=== PATIENT | female | born 1945 | race Caucasian/White ===

== ENCOUNTER → 2020-01-08 13:04 | Outpatient (CLI) | payer MEDICARE | END | disposition home or self-care (01) | LOC: D.US 13:04 | PROVIDERS: ATTEND Nurse Practitioner Family | DX: M79.89 Other specified soft tissue disorders (principal); I10 Essential (primary) hypertension; E78.5 Hyperlipidemia, unspecified; E11.9 Type 2 diabetes mellitus without complications; E03.9 Hypothyroidism, unspecified; K21.9 Gastro-esophageal reflux disease without esophagitis; Z79.84 Long term (current) use of oral hypoglycemic drugs; R60.0 Localized edema ==

== ENCOUNTER 2020-04-06 16:53 | Inpatient (IN) | payer MEDICARE ==
[~2020-04-06] VITALS: Ht 152.4 cm; Wt 111.1 kg
[2020-04-06 17:13] VITALS: BP 181/77
--- NOTE | 2020-04-06 18:01 | NUR ---
ADMITTED TO ROOM 1118B. ALERT AND ORIENTED. R KNEE SURGERY WITH CAST AND DANIELA WRAP. DO NOT BEND R KNEE.
--- NOTE | 2020-04-06 19:30 | NUR ---
NEW ADMIT, PT BLIND, CAN SEE SOME COLORS AND OUTLINES, REDDENED AREA AROUND UPPER THIGHS AND PHILL AREA, USED BUTT PASTE, RIGHT KNEE IN SPLINT W/DANIELA WRAP KNEE IS NOT TO BE BENT OR SPLINT REMOVED, WBAT, PT IS INCONTINENT OF BLADDER, MORBIDLY OBESE, PLEASANT, DENTURES,
[2020-04-07 04:31] VITALS: BP 124/79
[2020-04-07 08:22] VITALS: BP 138/57
--- NOTE | 2020-04-07 11:00 | NUR ---
I have reviewed this patient and I concur with the Shift Assessment completed by the Licensed Practical Nurse today this shift.
--- NOTE | 2020-04-07 13:56 | NUR ---
PT RESTING IN BED WITH EYES OPEN CALL LIGHT IN REACH WILL MONITER
[2020-04-07 15:45] VITALS: Ht 152.4 cm; Wt 111.1 kg
--- NOTE | 2020-04-07 17:44 | RHP ---
PATIENT: PEDRO LONGO MEDICAL RECORD: [id number] ACCOUNT: [id number] LOCATION:[facility]1118 : 49 ADMISSION DATE: 04/06/20 REHABILITATION HISTORY AND PHYSICAL EXAMINATION POST ADMISSION PHYSICIAN EXAMINATION POST ADMISSION PHYSICAL EXAMINATION AND HISTORY AND PHYSICAL DATE OF ADMISSION: 04/06/2020 ADMITTING DIAGNOSIS: Disuse myopathy. 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 The patient is status post right quad tendon reconstruction and allograft on 04/03/[address] Arita. The patient has had some right total knee in the past. She lives in assisted living, has been using wheelchair for mobility, has a history recent "fall. She is also blind. She can see some colors and outlines at time. Her postop has been complicated by severe pain, nausea, vomiting, hypoxia, increased O2 dependence. She has currently had prolonged immobility, progressive generalized weakness, especially on lower extremities and affecting her tolerance to PT. She is very fatigued, has limited use of her right lower extremity. Postop, she is weightbearing as tolerated on bilateral lower extremities with strict orders to keep right leg splint in place and do not bend. Her proximal muscle strength is decreased. She is mod to max assist for ADLs, mod to max assist for sit to stand and bed to chair. Due to her visual deficit, she does require maximum verbal cues for this and tactile clues. The patient has to use equipment, proper posture, and other modalities to get around. She demonstrates fair sitting and standing. She has a history of frequent falls and unsteady gait. She is agreeable to participate in therapy and noted after ambulating 7 feet with PT, it feels good to walk again and be out of bed. COMORBIDITIES: Include status post right quad tendon repair and allograft, hypertension, AFib, hypothyroidism, frequent falls, seizure disorder, CHF, headaches, chronic pancreatitis, AFib, anemia, debility, dyspnea and decrease in physical functioning. PAST MEDICAL HISTORY: Significant for AFib, seizure disorder, diabetes, hypothyroidism, gastroesophageal reflux disease, arthritis, obstructive sleep apnea, blindness. ALLERGIES: CODEINE, OXYCODONE, THYROID, PORK, VESICARE, AND ANY TYPE OF THYROID MEDICATIONS. CURRENT MEDICATIONS: Include furosemide 20 mg daily, potassium 10 mEq daily, multivitamin daily, glimepiride 1 mg daily, ferrous sulfate 325 daily, Protonix 40 mg daily, polyethylene glycol 17 grams in 8 ounces of water daily, Warrior 10/325 one tab q.4 hours p.r.n., and Tylenol 325 q.6 hours p.r.n. HABITS: No alcohol or tobacco use. FAMILY HISTORY: Noncontributory. SOCIAL HISTORY: The patient hopes to return back to her assisted living. HISTORY AND PHYSICAL [id number] PEDRO LONGO REVIEW OF SYSTEMS: GENERAL: Does complain of weakness and fatigue. HEENT: Denies cold, cough, or congestion. CARDIOVASCULAR: Denies any chest pain. PHYSICAL EXAMINATION: VITAL SIGNS: Stable, afebrile. GENERAL: A somewhat obese female, in no distress upon exam. HEENT: Normocephalic and atraumatic. Mucosa moist. NECK: Supple. No lymphadenopathy. LUNGS: Clear in upper genao. HEART: Regular rate and rhythm. No murmurs, rubs, or gallops. ABDOMEN: Soft, benign, and nondistended. Positive bowel sounds. EXTREMITIES: Does have a noted splint in place and decreased proximal muscle strength. NEUROLOGIC: She is somewhat deconditioned. ASSESSMENT: This is a 75-year-old female patient admitted to rehab with a working diagnosis of disuse myopathy. The patient has potential to make improvement. We instituted the following multidisciplinary therapies including, but not limited to physical, occupational, respiratory, speech, nutritional services, prosthetics and orthotics. Given her complex medical condition and risks for more complications, rehabilitation services cannot be provided at a low level of care such as half-way facility. PLAN: 1. Admit to [place] rehab for inpatient therapy to include the following disciplines; A. Physical therapy to improve gait, all transfer skills and bed mobility to a modified independent level. B. Occupational therapy to improve activities of daily living. C. Case management to help with discharge planning and placement options. D. Nutrition to assist with nutritional needs. E. Rehabilitation nursing to assist in monitoring the patient's underlying medical conditions and to assist with any type of bowel or bladder management. 2. The patient's current medication and medical care will be continued. 3. The patient will be placed on standard fall precautions. 4. The patient's estimated length of stay is approximately 7-10 days. 5. We will discuss this patient during care team staff meeting this week. We watch her closely and make sure she does not falls secondary to her blindness and use adaptive equipment to get around and I will see again in the morning and we are going to discuss her case tomorrow at noon. TRANSINT:[id number] Voice Confirmation ID: [id number] DOCUMENT ID: [id number] TYLER notes whether there has been none or any medical/functional change since admission: - No change since preadmission screen. TYLER attests patient continues to be appropriate for IRF: - Continues to be appropriate. HISTORY AND PHYSICAL [id number] PEDRO LONGO,LEANA ST MD at 1744 CC: [id number] DICTATION DATE: 04/07/2055 COMMERCIAL ADMINISTRATOR: 04/07/20 0924 ADM IN [facility] [address] [id number]
--- NOTE | 2020-04-07 17:51 | NUR ---
PT RESTING IN BED WITH EYES OPEN CALL LIGHT IN REACH WILL MONITER
--- NOTE | 2020-04-07 20:35 | NUR ---
PT IN BED LISTENING TO TV, NO NEEDS NOTED, MENU FILLED OUT, PT STATES NOT ALLERGIC TO PORK, PT ALLGERY TO "CORN, SHELLFISH, RED SAUCES" FLUIDS/CALL LIGHT WITHIN REACH
[2020-04-08 01:37] VITALS: BP 142/57
--- NOTE | 2020-04-08 07:45 | NUR ---
A/A/0X4. STATES SHE HAS SOME PAIN BUT DOES NOT WANT ANY PAIN MED AT THIS TIME. UP IN W/C AT BEDSIDE AND DRESSED FOR THERAPY THIS AM. CALL LIGHT AND FLUIDS IN REACH. BED IN LOW LOCKED POSITION. SPLINT IN PLACE AND COVERED WTIH DANIELA WRAP.
--- NOTE | 2020-04-08 10:28 | NUR ---
PATIENT ADMITTED TO REHAB FROM [facility]. HER PCP IS DR. LEON IN [place]. PATIENT HAS AN APPOINTMENT WITH LEON HUSAIN ON 04/16/20 @ 11:00. DISCHARGE PLANS ARE FOR HER TO RETURN TO HER APARTMENT AT [facility]. WILL CONTINUE TO FOLLOW WITH PATIENT.
[2020-04-08 10:47] VITALS: BP 117/75
[2020-04-08 10:58] LABS: BASOPHILS 0.3 % (0-2); EOSINOPHILS 5.3 % (0-7); HEMATOCRIT 33.7 % (36.0-48.0); HEMOGLOBIN 10.4 g/dL (12-16); IMMATURE GRANULOCYTES 1.9 % (0-5); LYMPHOCYTES 13.3 % (15-50); MCH 26.6 pg (26.0-34.0); MCHC 30.9 g/dL (31.0-37.0); MCV 86.2 fL (80.0-100.0); MEAN PLATELET VOLUME 8.9 fL (7.4-10.4); MONOCYTES 4.4 % (2-11); NEUTROPHILS 74.8 % (40-80); PLATELET COUNT 421 10x3/uL (130-400); RBC 3.91 10x6/uL (4.00-5.40); RDW 16.1 % (11.5-14.5)
[2020-04-08 11:14] LABS: ANION GAP 8.3 mmol/L (8-16); CALCIUM 8.6 mg/dL (8.5-10.1); CARBON DIOXIDE 30.6 mmol/L (21.0-32.0); CREATININE - SERUM 0.8 mg/dL (0.6-1.3); POTASSIUM - SERUM 3.9 mmol/L (3.5-5.1)
--- NOTE | 2020-04-08 14:17 | NUR ---
CARE TEAM MEETING: PATIENT IS NEW TO UNIT AND WILL BE RA AT NEXT MEETING. WILL CONTINUE TO FOLLOW WITH PATIENT.
--- NOTE | 2020-04-08 16:21 | NUR ---
ASSISTED UP TO BATHROOM AMD TOLERATED WELL WITH MINIMAL ASST. HAS NOT HAD ANY INCONTINENT EPISODES TODAY. REMAINS UP IN CHAIR AT BEDSIDE FOR EVENING MEAL.
--- NOTE | 2020-04-08 22:26 | NUR ---
PT IN BED ON CELL PHONE, NO NEEDS NOTED, FLUIDS/CALL LIGHT WITHIN REACH
[2020-04-09 01:35] VITALS: BP 138/49
--- NOTE | 2020-04-09 07:30 | NUR ---
AWAKE,RESTING QUIETLY IN BED.DENIES PAIN AT PRESENT TIME.DRESSING INTACT TO RT KNEE,LOWER LEG WITH SMALL AMT.OF OLD DRAINAGE NOTED.WILL CONTINUE WITH CURRENT PLAN OF CARE.CL IN EASY REACH,BED IN LOW POSITION.
--- NOTE | 2020-04-09 09:19 | NUR ---
PATIENT IS AN ACTIVE CLIENT OF [facility]. WILL CONTINUE TO FOLLOW WITH PATIENT.
--- NOTE | 2020-04-09 11:30 | NUR ---
TRANSFERED VIA BED TO ROOM 1119B.ALL PERSONAL ITEMS TRANSFERED WITH HER.BED IN LOW POSITION,CL IN EASY REACH.ALL NEEDED PERSONAL ITEMS PLACED IN EASY REACH.
--- NOTE | 2020-04-09 19:59 | NUR ---
PT TOILETED, SPLINT REMOVED BY PT/OT TODAY D/T BLEEDING, CLEANED AND REWRAPPED, PER PTS STATEMENT WHEN ASKED WHY LEG WRAP WAS FALLING OFF,NO OTHER NEEDS NOTED, FLUIDS/CALL LIGHT WITHIN REACH
[2020-04-09 21:17] VITALS: BP 148/72
--- NOTE | 2020-04-10 03:55 | NUR ---
PT ASLEEP, AROUSES EASILY TO VOICE, RESPIRATIONS EVEN AND UNLABORED, NO NEEDS NOTED, FALL PRECAUTIONS IN PLACE, FLUIDS/CALL LIGHT WITHIN REACH
[2020-04-10 07:30] VITALS: BP 129/60
--- NOTE | 2020-04-10 07:30 | NUR ---
AWAKE,UP IN TREATMENT ROOM .DENIES PAIN AND NEEDS.WILL CONTINUE WITH CURRENT PLAN OF CARE.
--- NOTE | 2020-04-10 16:40 | NUR ---
Nutrition Follow-up: Diet: Regular PO intake: 100% x last 6 recorded meals Last BM: 04/08/20 x 2. WT: 245# (04/07/20) Meds noted: micro-k, glimepiride, lasix. Labs noted. Recommend continue current diet. RD following.
--- NOTE | 2020-04-10 19:50 | NUR ---
PATIENT RECEIVED SITTING UP IN WHEELCHAIR. PATIENT VITAL SIGNS & ASSESSMENT DONE. PATIENT ASSIST WITH STANDING. SHORTS TAKEN OFF FOR THE NIGHT. TOILETED HAD VOID ONLY. PATIENT RETURNED TO BED. DRESSING TO LEFT KNEE C/D/I. BED LOW. ALARM ON. CALL LIGHT WITHIN REACH. WILL CONTINUE TO MONITOR.
[2020-04-10 20:08] VITALS: BP 133/77
--- NOTE | 2020-04-11 03:17 | NUR ---
I have reviewed this patient and I concur with the Shift Assessment completed by the Licensed Practical Nurse today this shift.
--- NOTE | 2020-04-11 04:00 | NUR ---
PATIENT USED CALL LIGHT FOR ASSIST. BEDPAN PLACED UNDER PATIENT. INCONTINENCE ON PAD. VOID ONLY. PATIENT CLEANED. SOILED PADS REMOVED. NEW PADS PLACED. BED LOW. CALL LIGHT WITHIN REACH. WILL CONTINUE TO MONITOR.
--- NOTE | 2020-04-11 10:58 | NUR ---
PT RESTING IN BED WITH EYES OPEN CALL LIGHT IN REACH WILL MONITER
--- NOTE | 2020-04-11 12:00 | NUR ---
I have reviewed this patient and I concur with the Shift Assessment completed by the Licensed Practical Nurse today this shift.
--- NOTE | 2020-04-11 18:31 | NUR ---
PT RESTING IN BED WITH EYES OPEN CALL LIGHT IN REACH NO PROBLEMS WILL MONITER
--- NOTE | 2020-04-11 19:45 | NUR ---
PATIENT RECEIVED LAYING IN BED. PATIENT ASSESSMENT & VITAL SIGNS DONE. PATIENT BRIEF WET. PATIENT TURNED SIDE TO SIDE. OLD BRIEF OFF. NEW PADS PLACED UNDER BUTTOCKS PER PATIENT REQUEST. BED LOW. CALL LIGHT WITHIN REACH. WILL CONTINUE TO MONITOR.
[2020-04-11 20:38] VITALS: BP 150/64
--- NOTE | 2020-04-12 01:34 | NUR ---
I have reviewed this patient and I concur with the Shift Assessment completed by the Licensed Practical Nurse today this shift.
[2020-04-12] MEDS ORDERED: APAP325 MG PO (01:58)
[2020-04-12] MEDS ORDERED: BAYER ASPIRIN325 MG PO (01:59)
[2020-04-12] MEDS ORDERED: FUROSEMIDE20 MG PO (02:00)
[2020-04-12] MEDS ORDERED: GLIMEPIRIDE1 MG PO (02:01)
[2020-04-12] MEDS ORDERED: HYDROCODON-ACE1 EA10 PO (02:02)
[2020-04-12] MEDS ORDERED: SYNTHROID125 MCG PO (02:03)
[2020-04-12] MEDS ORDERED: MULTI-DAY VITAM1 TAB PO (02:04)
[2020-04-12] MEDS ORDERED: OMEPRAZOLE40 MG PO (02:05)
[2020-04-12] MEDS ORDERED: MIRALAX17 GM PO (02:06)
[2020-04-12] MEDS ORDERED: POTASSIUM CHLO10 ME1 PO (02:08)
--- NOTE | 2020-04-12 04:45 | NUR ---
PATIENT USED CALL LIGHT FOR ASSIST. PATIENT PLACED ON BEDPAN. LARGE VOID. PATIENT CLEANED & NEW PADS UNDER PATIENT BUTTOCKS. BED LOW.ALARM ON. CALL LIGHT WITHIN REACH. WILL CONTINUE TO MONITOR.
--- NOTE | 2020-04-12 08:00 | NUR ---
PT RESTING IN BED WITH EYES OPEN CALL LIGTH IN REACH WILL MONITER
[2020-04-12 08:21] VITALS: BP 138/63
--- NOTE | 2020-04-12 12:00 | NUR ---
I have reviewed this patient and I concur with the Shift Assessment completed by the Licensed Practical Nurse today this shift.
--- NOTE | 2020-04-12 18:01 | NUR ---
PT RESTING IN BED WITH EYES OPEN CALL LIGHT IN REACH WILL MONITER
--- NOTE | 2020-04-12 19:45 | NUR ---
PATIENT RECEIVED SITTING UP IN WHEELCHAIR. PATIENT STOOD UP WITH ASSIST. PANTS & BRIEF TAKEN OFF. INCONTINENT OF URINE. PERIAREA CLEANED. TOP TAKEN OFF. CLOTHING PLACED IN BED WITH MOD ASSIST. PATIENT PLACED ON INCONTINENT PADS. COVERED UP. BED LOW. ALARM ON. CALL LIGHT WITHIN REACH. WILL CONTINUE TO MONITOR.
[2020-04-13 05:00] VITALS: BP 162/62
--- NOTE | 2020-04-13 05:26 | NUR ---
I have reviewed this patient and I concur with the Shift Assessment completed by the Licensed Practical Nurse today this shift.
[2020-04-13 06:23] LABS: CALC OSMOLALITY 273 mosm/kg (275-300); CALCIUM 8.3 mg/dL (8.5-10.1); CARBON DIOXIDE 29.2 mmol/L (21.0-32.0); CHLORIDE - SERUM 101 mmol/L (98-107); CREATININE - SERUM 0.6 mg/dL (0.6-1.3); POTASSIUM - SERUM 4.7 mmol/L (3.5-5.1); SODIUM 135 mmol/L (136-145); UREA NITROGEN 13 mg/dL (7-18); eGFR NON AFRICAN AMERICAN > 90 mL/min (90-120)
[2020-04-13 06:27] LABS: GLUCOSE 168 mg/dL (74-106)
[2020-04-13 06:46] LABS: BASOPHILS 0.3 % (0-2); HEMATOCRIT 31.8 % (36.0-48.0); HEMOGLOBIN 9.9 g/dL (12-16); IMMATURE GRANULOCYTES 3.5 % (0-5); LYMPHOCYTES 14.6 % (15-50); MCHC 31.1 g/dL (31.0-37.0); MCV 86.6 fL (80.0-100.0); MEAN PLATELET VOLUME 8.7 fL (7.4-10.4); MONOCYTES 4.5 % (2-11); NEUTROPHILS 70.1 % (40-80); PLATELET COUNT 449 10x3/uL (130-400); RBC 3.67 10x6/uL (4.00-5.40); RDW 16.1 % (11.5-14.5); WBC 11.9 10x3/uL (4.8-10.8)
[2020-04-13 07:52] VITALS: BP 159/75
--- NOTE | 2020-04-13 12:37 | NUR ---
I have reviewed this patient and I concur with the Shift Assessment completed by the Licensed Practical Nurse today this shift.
--- NOTE | 2020-04-13 20:16 | NUR ---
PT ASLEEP, AROUSES EASILY TO VOICE, NO NEEDS NOTED, FALL PRECAUTIONS IN PLACE, FLUIDS/CALL LIGHT WITHIN REACH
[2020-04-14 03:19] VITALS: BP 164/60
--- NOTE | 2020-04-14 04:10 | NUR ---
PT ASLEEP AROUSES EASILY TO VOICE, NO NEEDS NOTED,FALL PRECAUTIONS IN PLACE, FLUIDS/CALL LIGHT WITHIN REACH
[2020-04-14 07:41] VITALS: BP 129/60
--- NOTE | 2020-04-14 08:00 | NUR ---
PT RESTING IN BED WITH EYES OPEN CALL LIGHT IN REACH WILL MONITER
--- NOTE | 2020-04-14 08:00 | NUR ---
PT RESTING IN BED WITH EYES OPEN CALL LIGHT IN REACH WILL MONITER
--- NOTE | 2020-04-14 15:22 | NUR ---
Nutrition Follow-up: Diet: Regular PO intake: 100% x all meals Last BM: 04/13/20. Wt: 245# (04/07/20) Meds noted: micro-k, glimepiride, lasix. Labs noted: Na 135(L), Glu 168(H) May consider restricting diet to consistent CHO 2/[address] following.
--- NOTE | 2020-04-14 18:50 | NUR ---
PT RESTING IN BED WITH EYES OPEN WILL MONITER
--- NOTE | 2020-04-14 20:08 | NUR ---
PT WATCHING TV, NO NEEDS NOTED, FALL PRECAUTIONS IN PLACE, FLUIDS/CALL LIGHT WITHIN REACH, PT/OT REWRAPPED SPLINT TODAY, SPLINT SLIDING WRAP LOOSE, PT IN BED WILL REWRAP AFTER MED PASS
[2020-04-14 21:24] VITALS: BP 142/50
--- NOTE | 2020-04-15 00:03 | NUR ---
PT TOILETED NOTED SPLINT DRSG FALLING OFF, REBANDADGED SPLINT NOTED BLOOD ON DRSG, COPIOUS AMT OF BLOOD RUNNING DOWN LEG, PRESSURE BANDAGE APPLIED, SPLINT PLACED PROPERLY BEHIND KNEE AND WRAPPED WITH KERLIX AND DANIELA WRAP
--- NOTE | 2020-04-15 08:00 | NUR ---
SHIFT ASSMT COMPLETED.
[2020-04-15 08:24] VITALS: BP 139/51
--- NOTE | 2020-04-15 15:01 | NUR ---
CARE TEAM MEETING: PATIENT ATTENDED THE MEETING. HER QUESTIONS AND CONCERNS WERE ADDRESSED. HER TENATIVE DC DATE IS 05/01/20. WILL CONTINUE TO FOLLOW WITH PATIENT.
[2020-04-15 20:07] VITALS: BP 141/66
--- NOTE | 2020-04-15 20:42 | NUR ---
PT ASLEEP, AROUSES EASILY TO VOICE, CPAP ON, NO IMMEDIATE NEEDS NOTED, FALL PRECAUTIONS IN PLACE, FLUIDS/CALL LIGHT WITHIN REACH
--- NOTE | 2020-04-16 04:59 | NUR ---
PT ASLEEP AROUSES EASILY TO VOICE, RESPIRATIONS EVEN, NO NEEDS NOTED, FALL PRECAUTIONS IN PLACE, FLUIDS/CALL LIGHT WITHIN REACH
[2020-04-16 08:00] VITALS: BP 119/58
--- NOTE | 2020-04-16 16:00 | NUR ---
CONTINUE PLANNED WITH THERAPY.
--- NOTE | 2020-04-16 18:23 | NUR ---
SHIFT ASSMT COMPLETED.
--- NOTE | 2020-04-16 20:01 | NUR ---
PT TOILETED, RESPIRATIONS EVEN, FALL PRECAUTIONS IN PLACE, FLUIDS/CALL LIGHT WITHIN REACH PT C/O BRACE SLIDING DOWN CAN'T PLACE FOOT FLAT ON FLOOR BRACE RE ADJUSTED , PT HELPED INTO BED
--- NOTE | 2020-04-17 07:30 | NUR ---
RESTING QUIETLY POSITIONED ON LEFT SIDE WITH EYES CLOSED AND EVEN, UNLABORED RESPIRATIONS ON RA. SIDERAILS UP X 2, CALL LIGHT AND FLUIDS IN EASY REACH AND BED IN LOW, LOCKED POSITION. NO APPARENT PROBLEMS.
--- NOTE | 2020-04-17 08:45 | NUR ---
ENTERED PT ROOM AND SHE WAS ATTEMPTING TO CRAWL OUT OF BED AND STATES SHE NEED TO GET DRESSED AND GET OUT OF HERE. ALSO STATES WE ARE HOLDING HER PRISIONER AND JUST WAITING FOR RANSOM. TALKED WITH PT AND ORIENTED HER BACK TO PLACE AND TIME. ASSISTED UP INTO W/C AND CLOTHES CHANGED, CLEAN DRY BRIEF PUT ON HER. NO REQUESTS VOICED.
[2020-04-17 17:27] VITALS: BP 157/97
[2020-04-17 20:00] VITALS: BP 142/74
--- NOTE | 2020-04-17 20:00 | NUR ---
PATIENT RECEIVED SITTING UP IN WHEELCHAIR. VITAL SIGNS DONE. PATIENT TOILETED. VOID ONLY. ASSESSMENT DONE. PATIENT PLACED IN BED. BRACE ADJUSTED & PADDED. LEG ELEVATED. BED LOW. ALARM ON. CALL LIGHT WITHIN REACH. WILL CONTINUE TO MONITOR.
--- NOTE | 2020-04-17 22:15 | NUR ---
PATIENT BRACE ADJUSTED UP RIGHT LEG FOR COMFORT. PATIENT TOILETED & HAD VOID ONLY. PATIENT ASSIST INTO BED. BRACE ON RIGHT LEG ADJUSTED FOR COMFORT. BED LOW. CALL LIGHT WITHIN REACH. WILL CONTINUE TO MONITOR.
--- NOTE | 2020-04-18 01:15 | NUR ---
PATIENT ASSIST OUT OF BED. BRACE MOVED UP RIGHT LEG. PATIENT HAD VOID ONLY. PATIENT BRACE ADJUSTED AGAIN BEFORE PATIENT ASSIST INTO LOW BED. RIGHT & LEFT LEG ELEVATED ON PILLOWS. CALL LIGHT WITHIN REACH. WILL CONTINUE TO MONITOR.
--- NOTE | 2020-04-18 04:04 | NUR ---
I have reviewed this patient and I concur with the Shift Assessment completed by the Licensed Practical Nurse today this shift.
--- NOTE | 2020-04-18 09:51 | NUR ---
DRESSING TO RIGHT KNEE CHANGED. SUTURE LINE C/D/I WITH ONLY MINIMAL AMT OF BLEEDING NOTED INTERMITTENTLY. GAUZE PLACED ON SUTURE LINE FOLLOWED WITH ABD PAD AND TAPED DOWN TO NOLD PRESSURE ON INCISION LINE. WRAPPED WITH KERLIX AND BRACE APPLIED. PT STATES IT FEELS BETTER WITH THE KERLIX UNDER THE BRACE. ASSISTED UP IN W/C AT BEDSIDE. NO REQUESTS VOICED.
[2020-04-18 11:01] VITALS: BP 111/64
--- NOTE | 2020-04-18 20:08 | NUR ---
PATIENT RECEIVED SITTING UP IN WHEELCHAIR. ASSESSMENT & VITAL SIGNS DONE. PATIENT RETURNED TO BED. RIGHT LEG ELEVATED ON PILLOWS. BED LOW. CALL LIGHT WITHIN REACH. WILL CONTINUE TO MONITOR.
[2020-04-18 20:34] VITALS: BP 136/47
--- NOTE | 2020-04-19 02:49 | NUR ---
I have reviewed this patient and I concur with the Shift Assessment completed by the Licensed Practical Nurse today this shift.
--- NOTE | 2020-04-19 03:42 | NUR ---
PATIENT USED CALL LIGHT FOR ASSIST. THIS NURSE & TECH WENT TO ROOM. PATIENT BRACE HAD SLID DOWN TO HER ANKLE. LEG BRACE ADJUSTED UP. PATIENT MINIMAL ASSIST OUT OF BED TO BATHROOM. VOID ONLY. PATIENT RETURNED TO BED. LEG BRACE ADJUSTED UP. LEGS ELEVATED ON PILLOWS. BED LOW. CALL LIGHT WITHINREACH. WILL CONTINUE TO MONITOR.
[2020-04-19 07:42] VITALS: BP 120/54
--- NOTE | 2020-04-19 08:22 | NUR ---
PT RESTING IN BED WITH EYES OPEN CALL LIGHT IN REACH WILL MONITER
--- NOTE | 2020-04-19 18:21 | NUR ---
PT RESTING IN BED WITH EYES OPEN CALL LIGHT IN REACH WILL MONITER
[2020-04-19 20:00] VITALS: BP 135/70
--- NOTE | 2020-04-19 20:00 | NUR ---
PATIENT RECEIVED LAYING IN BED. ASSESSMENT & VITAL SIGNS DONE. C/O RIGHT LEG BRACE. LEG BRACE STRAPS LOOSENED & BRACE MOVED UP OFF ANKLE. BOTH LEGS ELEVATED ON PILLOW. PATIENT DECIDED TO GET UP & GO TO BATHROOM. VOID ONLY. PATIENT RETURNED TO BED WITH STANDBY ASSIST USING ROLLING WALKER. LEG BRACE READJUSTED UP LEG. LEGS ELEVATED ON PILLOW. BED LOW. CALL LIGHT WITHIN REACH. WILL CONTINUE TO MONITOR.
--- NOTE | 2020-04-20 03:18 | NUR ---
I have reviewed this patient and I concur with the Shift Assessment completed by the Licensed Practical Nurse today this shift.
--- NOTE | 2020-04-20 03:20 | NUR ---
PATIENT USED CALL LIGHT FOR ASSIST. PATIENT MINIMAL ASSIST OUT OF BED. STANDBY ASSIST USING WALKER TO TOILET. PATIENT RETURNED TO BED. BRACE ADJUSTED UP THE LEG. DRESSINGS TO ANKLE IN PLACE. CALL LIGHT WITHIN REACH. WILL CONTINUE TO [facility].
[2020-04-20 07:17] LABS: BASOPHILS 0.2 % (0-2); HEMATOCRIT 34.4 % (36.0-48.0); HEMOGLOBIN 10.2 g/dL (12-16); LYMPHOCYTES 19.3 % (15-50); MCH 25.8 pg (26.0-34.0); MCHC 29.7 g/dL (31.0-37.0); MCV 87.1 fL (80.0-100.0); MEAN PLATELET VOLUME 8.7 fL (7.4-10.4); MONOCYTES 4.4 % (2-11); NEUTROPHILS 67.1 % (40-80); PLATELET COUNT 487 10x3/uL (130-400); RBC 3.95 10x6/uL (4.00-5.40); RDW 16.5 % (11.5-14.5)
[2020-04-20 07:30] LABS: CALC OSMOLALITY 266 mosm/kg (275-300); CALCIUM 8.5 mg/dL (8.5-10.1); CARBON DIOXIDE 29.8 mmol/L (21.0-32.0); CHLORIDE - SERUM 100 mmol/L (98-107); CREATININE - SERUM 0.7 mg/dL (0.6-1.3); GLUCOSE 135 mg/dL (74-106); POTASSIUM - SERUM 4.5 mmol/L (3.5-5.1); SODIUM 133 mmol/L (136-145); UREA NITROGEN 11 mg/dL (7-18); eGFR NON AFRICAN AMERICAN 87 mL/min (90-120)
[2020-04-20 08:00] VITALS: BP 144/72
--- NOTE | 2020-04-20 08:10 | NUR ---
ALERT AND ORIENTED. EATING BREAKFAST. CL IN REACH.
--- NOTE | 2020-04-20 13:48 | NUR ---
NO CHANGE IN ASSESSMENT. MEDICAL SUPPLIER READJUSTED BOOT TO R LE. SEEMS TO BE FITTING BETTER AT THIS TIME.
--- NOTE | 2020-04-20 15:46 | NUR ---
Nutrition Follow-up: Diet: Regular PO intake: 100% x last 7 meals Last BM: 04/20/20. Wt: 245# (04/07/20) Meds noted: micro-K, glimepiride, lasix. Labs noted: Na 133(L), Glu 135(H). Recommend continue current diet. RD following.
--- NOTE | 2020-04-20 16:31 | NUR ---
PARTICIPATED IN THERAPY TODAY. NO DISTRESS NOTED.
[2020-04-20 19:27] VITALS: BP 144/61
--- NOTE | 2020-04-20 19:35 | NUR ---
PT IN BED ASLEEP, NO IMMEDIATE NEEDS NOTED, RESPIRATIONS EVEN UNLABORED, FALL PRECAUTIONS IN PLACE, FLUIDS/CALL LIGHT WITHIN REACH, BIPAP ON
--- NOTE | 2020-04-20 22:39 | NUR ---
PT ASLEEP AROUSES EASILY TO VOICE, NO IMMEDIATE NEEDS NOTED, RESPIRATIONS EVEN UNLABORED, FALL PRECAUTIONS IN PLACE, FLUIDS/CALL LIGHT WITHIN REACH BIPAP ON
--- NOTE | 2020-04-21 01:33 | NUR ---
PT ASLEEP AROUSES EASILY TO VOICE, NO IMMEDIATE NEEDS NOTED, RESPIRATIONS EVEN UNLABORED, FALL PRECAUTIONS IN PLACE, FLUIDS/CALL LIGHT WITHIN REACH
[2020-04-21 07:30] VITALS: BP 151/68
--- NOTE | 2020-04-21 10:32 | NUR ---
PATIENT DISCHARGING HOME TODAY . [facility] WILL RESUME THERAPY AT HOME. DELANO SIGNED, IMM SERVED AND EXPLAINED, ONE GIVEN TO PATIENT AND ONE FILED IN CHART. NO NEW DME NEEDED AT THIS TIME. DR. LEON 04/28/20 @ 10:00, LEON HUSAIN 04/23/20 @ 4:00, DISCHARGE INSTRUCTIONS FAXED TO PCP, HOME HEALTH AND REVIEWED WITH PATIENT PER PRIMARY NURSE.NO COMPARE DATA REVIEWED PATIENT IS A CLIENT OF [facility] AND WOULD LIKE TO CONTINUE TO THERAPY.
[2020-04-21] MEDS ORDERED: FERROUS SULFAT325 MG PO (12:09)
== END 2020-04-21 15:00 | disposition home health service (06) | DRG 92 ==
LOC: D.REHAB 16:53
PROVIDERS: ADMIT Emergency Medicine; ATTEND Emergency Medicine
DX: G72.89 Other specified myopathies (principal); K86.1 Other chronic pancreatitis; I11.0 Hypertensive heart disease with heart failure; I50.9 Heart failure, unspecified; I48.91 Unspecified atrial fibrillation; E03.9 Hypothyroidism, unspecified; G40.909 Epilepsy, unspecified, not intractable, without status epilepticus; R51 Headache; D64.9 Anemia, unspecified; R53.81 Other malaise; R06.00 Dyspnea, unspecified; K21.9 Gastro-esophageal reflux disease without esophagitis; G47.33 Obstructive sleep apnea (adult) (pediatric); R09.02 Hypoxemia; E66.01 Morbid (severe) obesity due to excess calories; E11.9 Type 2 diabetes mellitus without complications; H54.7 Unspecified visual loss; R11.2 Nausea with vomiting, unspecified

== ENCOUNTER 2020-06-11 16:50 | Inpatient (IN) | payer MEDICARE ==
[~2020-06-11] VITALS: Ht 152.4 cm; Wt 113.6 kg
[~2020-06-11 16:50] MED LIST: APAP325 MG PO; BAYER ASPIRIN325 MG PO; FERROUS SULFAT325 MG PO; FUROSEMIDE20 MG PO; GLIMEPIRIDE1 MG PO; HYDROCODON-ACE1 EA10 PO; MIRALAX17 GM PO; MULTI-DAY VITAM1 TAB PO; OMEPRAZOLE40 MG PO; POTASSIUM CHLO10 ME1 PO; SYNTHROID125 MCG PO
[2020-06-11 17:59] LABS: BASOPHILS 0.2 % (0-2); EOSINOPHILS 6.4 % (0-7); HEMATOCRIT 40.4 % (36.0-48.0); HEMOGLOBIN 12.7 g/dL (12-16); LYMPHOCYTES 19.4 % (15-50); MCH 26.7 pg (26.0-34.0); MCHC 31.4 g/dL (31.0-37.0); MCV 84.9 fL (80.0-100.0); MEAN PLATELET VOLUME 8.8 fL (7.4-10.4); MONOCYTES 6.5 % (2-11); NEUTROPHILS 66.5 % (40-80); RBC 4.76 10x6/uL (4.00-5.40); RDW 14.8 % (11.5-14.5); WBC 8.2 10x3/uL (4.8-10.8)
[2020-06-11 18:05] LABS: PLATELET COUNT 306 10x3/uL (130-400)
[2020-06-11 18:17] LABS: APTT 26.8 SECONDS (22.8-39.4); PROTIME 13.1 SECONDS (11.6-15.0)
[2020-06-11 18:20] LABS: CALC OSMOLALITY 268 mosm/kg (275-300); CALCIUM 9.1 mg/dL (8.5-10.1); CARBON DIOXIDE 27.9 mmol/L (21.0-32.0); CHLORIDE - SERUM 99 mmol/L (98-107); CREATININE - SERUM 0.8 mg/dL (0.6-1.3); GLUCOSE 166 mg/dL (74-106); POTASSIUM - SERUM 4.2 mmol/L (3.5-5.1); SODIUM 133 mmol/L (136-145); UREA NITROGEN 10 mg/dL (7-18); eGFR NON AFRICAN AMERICAN 74 mL/min (90-120)
[2020-06-11 18:21] LABS: D-DIMER-QUANTITATIVE 3.13 ug/mLFEU (0.20-0.54)
[2020-06-11 18:31] LABS: ALBUMIN 3.6 g/dL (3.4-5.0); ALKALINE PHOSPHATASE 121 U/L (30-120); ALT (SGPT) 16 U/L (10-68); BILIRUBIN - TOTAL 0.26 mg/dL (0.2-1.3); CKMB 1.2 U/L (0.0-3.6); CREATINE KINASE 52 UL (21-215); PROTEIN - SERUM 8.1 g/dL (6.4-8.2)
[2020-06-11 18:36] LABS: TROPONIN-I < 0.017 ng/mL (0.000-0.060)
--- NOTE | 2020-06-11 19:12 | NUR ---
PT TO RADIOLOGY
--- NOTE | 2020-06-11 19:28 | NUR ---
PT RETURNED FROM RADIOLOGY.
--- NOTE | 2020-06-11 20:30 | NUR ---
LEOBARDO POPE APRN AT PT'S BEDSIDE AT THIS TIME.
--- NOTE | 2020-06-11 20:32 | NUR ---
PT ASSISTED UP TO BEDSIDE COMMODE. PT DENIES FURTHER NEEDS AT THIS TIME. CALL LIGHT IN REACH. WILL CONTINUE TO MONITOR.
[2020-06-11 21:31] VITALS: BP 171/90
--- NOTE | 2020-06-11 21:32 | NUR ---
PT ASSISTED WITH BEDPAN, DENIES FURTHER NEEDS AT THIS TIME. CALL LIGHT IN REACH. WILL CONTINUE TO MONITOR.
[2020-06-11 23:31] VITALS: BP 154/61
[2020-06-11 23:37] LABS: CKMB 1.4 U/L (0.0-3.6); CREATINE KINASE 42 UL (21-215); TROPONIN-I < 0.017 ng/mL (0.000-0.060)
--- NOTE | 2020-06-11 23:41 | NUR ---
ANSWERED PT'S CALL LIGHT, PT GIVEN BLANKETS AND HEAD OF BED ADJUSTED TO LEVEL OF COMFORT. PT DENIES FURTHER NEEDS AT THIS TIME. CALL LIGHT IN REACH. WILL CONTINUE TO MONITOR.
[2020-06-12] VITALS (9 sets, daily range): BP systolic 145–175; BP diastolic 61–84
--- NOTE | 2020-06-12 00:27 | NUR ---
PT GIVEN PILLOW AND ANOTHER BLANKET. DENIES FURTHER NEEDS. CALL LIGHT IN REACH. WILL CONTINUE TO MONITOR.
--- NOTE | 2020-06-12 01:49 | NUR ---
PT RESTING QUIETLY, RR EVEN AND UNLABORED, VSS, CALL LIGHT IN REACH. WILL CONTINUE TO MONITOR.
--- NOTE | 2020-06-12 03:31 | NUR ---
ANSWERED PT'S CALL LIGHT, PT ASSISTED WITH BEDPAN. DENIES FURTHER NEEDS, CALL LIGHT IN REACH.
--- NOTE | 2020-06-12 05:00 | NUR ---
PT RESTING QUIETLY WITH EYES CLOSED, RR EVEN AND UNLABORED, VSS, CALL LIGHT IN REACH. WILL CONTINUE TO MONITOR.
--- NOTE | 2020-06-12 05:38 | NUR ---
ANSWERED PT'S CALL LIGHT, PT ASSISTED WITH BEDPAN AND REPOSITIONED IN BED TO LEVEL OF COMFORT. CALL LIGHT IN REACH. WILL CONTINUE TO MONITOR.
[2020-06-12 08:39] LABS: BASOPHILS 0.2 % (0-2); HEMATOCRIT 40.6 % (36.0-48.0); HEMOGLOBIN 12.6 g/dL (12-16); IMMATURE GRANULOCYTES 0.9 % (0-5); LYMPHOCYTES 16.4 % (15-50); MCH 26.2 pg (26.0-34.0); MCV 84.4 fL (80.0-100.0); MEAN PLATELET VOLUME 9.2 fL (7.4-10.4); MONOCYTES 5.8 % (2-11); NEUTROPHILS 70.7 % (40-80); PLATELET COUNT 320 10x3/uL (130-400); RBC 4.81 10x6/uL (4.00-5.40); RDW 14.7 % (11.5-14.5); WBC 8.1 10x3/uL (4.8-10.8)
[2020-06-12 08:54] LABS: CALC OSMOLALITY 266 mosm/kg (275-300); CALCIUM 8.9 mg/dL (8.5-10.1); CARBON DIOXIDE 26.5 mmol/L (21.0-32.0); CHLORIDE - SERUM 103 mmol/L (98-107); CHOL - HDL RATIO 3.6 ratio (2.3-4.1); CHOLESTEROL, TOTAL 153 mg/dL (0-200); CREATININE - SERUM 0.7 mg/dL (0.6-1.3); GLUCOSE 138 mg/dL (74-106); HDL CHOLESTEROL 43 mg/dL (32-96); LDL CHOLESTEROL 83 mg/dL (0-100); LDL-HDL RATIO 1.9 ratio (1.5-3.5); MAGNESIUM - SERUM 1.8 mg/dL (1.8-2.4); PHOSPHOROUS 4.1 mg/dL (2.5-4.9); POTASSIUM - SERUM 3.9 mmol/L (3.5-5.1); PRO BNP 474 pg/mL (0-125); SODIUM 133 mmol/L (136-145); T4 THYROXIN - FREE 0.92 ng/dL (0.76-1.46); TRIGLYCERIDE 135 mg/dL (30-200); UREA NITROGEN 9 mg/dL (7-18); eGFR NON AFRICAN AMERICAN 87 mL/min (90-120)
[2020-06-12 10:16] LABS: CKMB 1.2 U/L (0.0-3.6); CREATINE KINASE 48 UL (21-215)
[2020-06-12 10:17] LABS: TROPONIN-I < 0.017 ng/mL (0.000-0.060)
--- NOTE | 2020-06-12 20:03 | NUR ---
INITIAL ROUNDS AND ASSESSMENT COMPLETED. CALL LIGHT IN REACH. NO DISTRESS.
--- NOTE | 2020-06-12 21:22 | NUR ---
SCHEDULED BEDTIME MEDS GIVEN + ZOFRAN IV FOR NAUSEA. PT IS LEGALLY BLIND. SR UP X 3, CALL LIGHT IN REACH. PLAN OF CARE IN PLACE.
[2020-06-13 00:54] VITALS: BP 175/73; Ht 152.4 cm; Wt 113.6 kg
--- NOTE | 2020-06-13 03:38 | NUR ---
REPORT STATES PT WAS MAX ASSIST X 3 TO GET HER FROM STRETCHER TO BED UPON ARRIVAL TO FLOOR. PT WANTING TO GET UP TO GO TO BATHROOM, BUT HAD HER USE BEDPAN TO VOID FOR SAFETY UNTIL SHE CAN BE SEEN BY PT FOR EVAL. RIGHT KNEE IS POST OP TKR.
[2020-06-13 04:00] VITALS: BP 123/60
[2020-06-13 07:02] LABS: BASOPHILS 0.3 % (0-2); EOSINOPHILS 4.1 % (0-7); HEMATOCRIT 40.6 % (36.0-48.0); HEMOGLOBIN 12.4 g/dL (12-16); IMMATURE GRANULOCYTES 0.6 % (0-5); LYMPHOCYTES 20.6 % (15-50); MCH 26.2 pg (26.0-34.0); MCHC 30.5 g/dL (31.0-37.0); MCV 85.8 fL (80.0-100.0); MEAN PLATELET VOLUME 9.4 fL (7.4-10.4); MONOCYTES 5.6 % (2-11); NEUTROPHILS 68.8 % (40-80); PLATELET COUNT 336 10x3/uL (130-400); RBC 4.73 10x6/uL (4.00-5.40)
[2020-06-13 07:15] LABS: T3 - FREE 1.8 pg/mL (2.0-4.4)
[2020-06-13 07:22] LABS: CALC OSMOLALITY 273 mosm/kg (275-300); CALCIUM 9.1 mg/dL (8.5-10.1); CARBON DIOXIDE 27.1 mmol/L (21.0-32.0); CHLORIDE - SERUM 101 mmol/L (98-107); CREATININE - SERUM 0.7 mg/dL (0.6-1.3); GLUCOSE 153 mg/dL (74-106); MAGNESIUM - SERUM 2.1 mg/dL (1.8-2.4); POTASSIUM - SERUM 3.9 mmol/L (3.5-5.1); SODIUM 136 mmol/L (136-145); UREA NITROGEN 10 mg/dL (7-18); eGFR NON AFRICAN AMERICAN 87 mL/min (90-120)
[2020-06-13 08:24] VITALS: BP 177/72
--- NOTE | 2020-06-13 08:24 | NUR ---
CALLED PHARMACY AND SPOKE WITH WATER PURIFIER VIVIENNE AND INFORMED HER THAT I NEED AMYRIL FOR PT.
--- NOTE | 2020-06-13 13:08 | NUR ---
CALLED [facility] AND REPORT GIVEN TO YONATHAN HERRON, WHO WILL BE TAKIGN CARE OF PT. PROVIDED VERBAL AND WRITTEN DISCHARGE TEACHING TO PT, WHO VERBALIZED UNDESTANDING REGARDING TEACHING. UNABLE TO SIGN PAPERWORK DUE TO BEING LEGALLY BLIND. REMOVED LT FA IV WITH CATHETER TIP INTACT. HEART MONITOR REMOVED AND TAKEN TO QUANTITATIVE RESEARCH ANALYST. [facility] WILL BE HERE TO PICK PT UP AT 1330.
--- NOTE | 2020-06-13 14:09 | NUR ---
PT LEFT UNIT VIA WHEELCHAIR, WITH ALL BELONGINGS, NAD NOTED.
--- NOTE | 2020-06-13 18:15 | MORECARE ---
CASE MANAGEMENT DISCHARGE SUMMARY PATIENT: PEDRO LONGO UNIT: [id number] ADM DATE: 06/12/20 AGE: 75 : 47 SEX: F ROOM/BED: D.1067 AUTHOR: ANNABELLE NAILS PHYSICIAN: REFERRING PHYSICIAN: DIONNE GOETZ MD DATE OF SERVICE: 06/13/20 Discharge Plan Patient Name: PEDRO LONGO Facility: [facility]:[place] : 1945 Planned Disposition: Assisted Living Anticipated Discharge Date: 06/13/20 Discharge Date: 06/13/2020 Expected LOS: 1 Initial Reviewer: [email or web address] Initial Review Date: 06/13/2020 Generated: 06/13/20 7:14 pm External Providers External Provider: OTHER-OTHER Next Contact Date: Service Request Date: Service Type: Resolution: Reviewer: Comments: Patient Name: PEDRO LONGO Page [phone] at [phone] All edits/amendments must be made on the electronic document DICTATION DATE: 06/13/201813 MATH TEACHER: HECTOR 06/13/201813 RPT#: [id number] DC DATE:06/13/20 STATUS: DIS IN [facility] [address] [place] [address] END OF REPORT
--- NOTE | 2020-06-13 18:22 | MORECARE ---
CASE MANAGEMENT DISCHARGE SUMMARY PATIENT: PEDRO LONGO UNIT: [id number] ADM DATE: 06/12/20 AGE: 75 : [birth year] SEX: F ROOM/BED: D.1467 AUTHOR: ANNABELLE NAILS PHYSICIAN: REFERRING PHYSICIAN: DIONNE GOETZ MD DATE OF SERVICE: 06/13/20 Discharge Plan Patient Name: PEDRO LONGO Facility: [facility]:[place] : 1945 Planned Disposition: Assisted Living Anticipated Discharge Date: 06/13/20 Discharge Date: 06/13/2020 Expected LOS: 1 Initial Reviewer: TESSIE Initial Review Date: 06/13/2020 Generated: 06/13/20 7:21 pm Comments DCP- Discharge Planning Updated by [email or web address]: Rex Recio on 06/13/20 5:[address] Patient Name: PEDRO LONGO Encounter No: [id number] : 1945 Primary Insurance: MEDICARE A & B Anticipated DC Date: 06-13-2020 Planned Disposition: Assisted Living External Planned Provider: : DCP follow-up note: Received call from [facility]. Intake Nurse informed CM that until COVID test status was faxed, patient will have to remain in isolation at facility. Informed intake nurse that COVID status was pending since 06/11/20. Intake nurse requested an updated fax of COVID status on Monday. Will continue to follow and assist as needed. Rex Recio DCP- Discharge Planning Updated by [email or web address]: Rex Recio on 06/13/20 5:[address] Patient Name: PEDRO LONGO Admission Status: ER Accout number: [id number] Admission Date: 06-12-2020 : 1945 Admission Diagnosis:CHEST PAIN, UNSPECIFIED Attending: BISHNU, Current LOS: 1 Anticipated DC Date: 06-13-2020 Planned Disposition: Assisted Living Primary Insurance: MEDICARE A & B Discharge Planning Comments: CM met with patient to complete initial dc planning assessment. CM educated patient on the CM role and verbal consent given by patient to complete assessment. CM verified patient's address, phone number, and emergency contact phone numbers. Patient lives in an assisted living facility, [facility] ([phone]). At discharge patient plans to return to [facility] and feels this is a safe discharge. Patient states that she can stand for short periods enough to transfer to a wheelchair. Patient states that she can use a walker for very limited distances. CM discussed availability of home health, rehab services, and medical equipment. Patient states that she has a walker and wheelchair at her home at [facility]. Patient declined HHS, SNF, IPR, DME and no other known discharge needs were discussed at this time. Transportation provider at discharge will be coordinated with [facility]. Spoke with Ellen at [facility] and transport arrangements were confirmed. CM will continue to follow and will assist as needed with dc plans/needs. Handtools Repairer: Rex Recio DCPIA - Discharge Planning Initial Assessment Updated by TESSIE: Rex Recio on 06/13/20 6:16 pm * Is the patient Alert and Oriented? Yes * How many steps to enter\exit or inside your home? 0/0 * Preadmission Environment Assisted Living * Facility Name [facility] * ADLs Partial Dependent * Partial ADLs (Assistance needed) Ambulation Medication Management * Equipment Walker Wheelchair * Other Equipment n/a * List name and contact numbers for known caregivers / representatives who currently or will assist patient after discharge: Maynor Galan (formerly [facility]) [phone] * Verbal permission to speak to the caregivers and representatives has been obtained from the patient. Yes * Community resources currently utilized Assisted Living * Please name any agencies selected above. [facility] * Additional services required to return to the preadmission environment? No * Can the patient safely return to the preadmission environment? Yes * Has this patient been hospitalized within the prior 30 days at any hospital? No Coverage Notice Reviewer: TESSIE Recio Notice Issued Date-Time: 06/13/2020 11:44 Notice Type: IM Discharge Notice Notice Delivered To: Patient Relationship to Patient: Self Transportation Coordinator Name: Delivery Method: HAND - Hand Delivered Amelie Days: Prior Verbal Notification: Recipient Understood Notice: Yes Recipient Signature: Yes Med Rec Note Co-signed by Attending: Coverage Notice Comment: DC IMM delivered, explained, signed by the patient, and placed in chart. Signed form also left with the patient. Reviewer: TESSIE Recio Notice Issued Date-Time: 06/13/2020 11:44 Notice Type: Patient Choice Letter Notice Delivered To: Patient Relationship to Patient: Self Transportation Coordinator Name: Delivery Method: HAND - Hand Delivered Amelie Days: Prior Verbal Notification: Recipient Understood Notice: Yes Recipient Signature: Yes Med Rec Note Co-signed by Attending: Coverage Notice Comment: 0 DME/SNF/HHS/IPR Last DP export: 06/13/20 5:15 p Patient Name: PEDRO LONGO Page [id number] at 1822 All edits/amendments must be made on the electronic document DICTATION DATE: 06/13/201820 HELICOPTER ENGINEER: HECTOR 06/13/201820 RPT#: [id number] CT DATE:06/13/20 STATUS: DIS IN [facility] [address] [place] [address] END OF REPORT
[2020-06-15 08:08] LABS: THYROGLOBULIN ANTIBODY <1.0 IU/mL (0.0-0.9); THYROID PEROXIDASE ABS 11 IU/mL (0-34)
--- NOTE | 2020-06-15 08:54 | MORECARE ---
CASE MANAGEMENT DISCHARGE SUMMARY PATIENT: PEDRO LONGO UNIT: [id number] ADM DATE: 06/12/20 AGE: 75 : [birth year] SEX: F ROOM/BED: D.2566 AUTHOR: ANNABELLE NAILS PHYSICIAN: REFERRING PHYSICIAN: DIONNE GOETZ MD DATE OF SERVICE: 06/15/20 Discharge Plan Patient Name: PEDRO LONGO Facility: [facility]:[place] : 1945 Planned Disposition: Assisted Living Anticipated Discharge Date: 06/13/20 Discharge Date: 06/13/2020 Expected LOS: 1 Initial Reviewer: TESSIE Initial Review Date: 06/13/2020 Generated: 06/15/20 9:54 am Comments DCP- Discharge Planning Updated by [email or web address]: Rex Recio on 06/13/20 5:[address] Patient Name: PEDRO LONGO Encounter No: [id number] : 1945 Primary Insurance: MEDICARE A & B Anticipated DC Date: 06-13-2020 Planned Disposition: Assisted Living External Planned Provider: : DCP follow-up note: Received call from [place]. Intake Nurse informed CM that until COVID test status was faxed, patient will have to remain in isolation at facility. Informed intake nurse that COVID status was pending since 06/11/20. Intake nurse requested an updated fax of COVID status on Monday. Will continue to follow and assist as needed. Rex Recio DCP- Discharge Planning Updated by [email or web address]: Rex Recio on 06/13/20 5:[address] Patient Name: PEDRO LONGO Admission Status: ER Accout number: [id number] Admission Date: 06-12-2020 : 1945 Admission Diagnosis:CHEST PAIN, UNSPECIFIED Attending: BISHNU, Current LOS: 1 Anticipated DC Date: 06-13-2020 Planned Disposition: Assisted Living Primary Insurance: MEDICARE A & B Discharge Planning Comments: CM met with patient to complete initial dc planning assessment. CM educated patient on the CM role and verbal consent given by patient to complete assessment. CM verified patient's address, phone number, and emergency contact phone numbers. Patient lives in an assisted living facility, [facility] ([phone]). At discharge patient plans to return to [place] and feels this is a safe discharge. Patient states that she can stand for short periods enough to transfer to a wheelchair. Patient states that she can use a walker for very limited distances. CM discussed availability of home health, rehab services, and medical equipment. Patient states that she has a walker and wheelchair at her home at [place]. Patient declined HHS, SNF, IPR, DME and no other known discharge needs were discussed at this time. Transportation provider at discharge will be coordinated with [place]. Spoke with Ellen at [facility] and transport arrangements were confirmed. CM will continue to follow and will assist as needed with dc plans/needs. Mud Analysis Operator: Rex Recio DCPIA - Discharge Planning Initial Assessment Updated by TESSIE: Rex Recio on 06/13/20 6:16 pm * Is the patient Alert and Oriented? Yes * How many steps to enter\exit or inside your home? 0/0 * Preadmission Environment Assisted Living * Facility Name [facility] * ADLs Partial Dependent * Partial ADLs (Assistance needed) Ambulation Medication Management * Equipment Walker Wheelchair * Other Equipment n/a * List name and contact numbers for known caregivers / representatives who currently or will assist patient after discharge: Maynro Galan ([facility]) [phone] * Verbal permission to speak to the caregivers and representatives has been obtained from the patient. Yes * Community resources currently utilized Assisted Living * Please name any agencies selected above. [facility] * Additional services required to return to the preadmission environment? No * Can the patient safely return to the preadmission environment? Yes * Has this patient been hospitalized within the prior 30 days at any hospital? No Coverage Notice Reviewer: TESSIE Recio Notice Issued Date-Time: 06/13/2020 11:44 Notice Type: IM Discharge Notice Notice Delivered To: Patient Relationship to Patient: Self Facility Examiner Name: Delivery Method: HAND - Hand Delivered Amelie Days: Prior Verbal Notification: Recipient Understood Notice: Yes Recipient Signature: Yes Med Rec Note Co-signed by Attending: Coverage Notice Comment: DC IMM delivered, explained, signed by the patient, and placed in chart. Signed form also left with the patient. Reviewer: TESSIE Recio Notice Issued Date-Time: 06/13/2020 11:44 Notice Type: Patient Choice Letter Notice Delivered To: Patient Relationship to Patient: Self Facility Examiner Name: Delivery Method: HAND - Hand Delivered Amelie Days: Prior Verbal Notification: Recipient Understood Notice: Yes Recipient Signature: Yes Med Rec Note Co-signed by Attending: Coverage Notice Comment: 0 DME/SNF/HHS/IPR Last DP export: 06/13/20 5:22 p Patient Name: PEDRO LONGO Page [id number] at 0854 All edits/amendments must be made on the electronic document DICTATION DATE: 06/15/20 0854 TECHNICAL PROJECT MANAGER: HECTOR 06/15/20 0854 RPT#: [id number] DC DATE:06/13/20 STATUS: DIS IN [facility] [address] [place] [address] END OF REPORT
== END 2020-06-13 14:29 | disposition home or self-care (01) | DRG 313 ==
LOC: D.ER 16:50 → D.EDHOLD 20:24 → OBSVTIME 20:24 → D.EDHOLD 20:24 → D.M2 06-12 17:13
PROVIDERS: Emergency Medicine; Family Medicine; ADMIT Family Medicine; ATTEND Family Medicine
DX: R07.89 Other chest pain (principal); Z68.42 Body mass index [BMI] 45.0-49.9, adult; H54.7 Unspecified visual loss; E03.9 Hypothyroidism, unspecified; E11.9 Type 2 diabetes mellitus without complications; M19.90 Unspecified osteoarthritis, unspecified site; E66.01 Morbid (severe) obesity due to excess calories; I10 Essential (primary) hypertension; Z95.2 Presence of prosthetic heart valve

== ENCOUNTER 2020-06-28 09:31 | Emergency (ER) | payer MEDICARE ==
[~2020-06-28] VITALS: Ht 152.4 cm; Wt 112.7 kg
[2020-06-28 09:33] VITALS: Ht 152.4 cm; Wt 112.7 kg
[2020-06-28] MEDS ORDERED: IMODIUM2 MG PO (09:36)
[2020-06-28 11:30] VITALS: BP 163/80
== END 2020-06-28 11:31 ==
LOC: D.ER 09:31
DX: M79.18 Myalgia, other site (principal); S00.03XA Contusion of scalp, initial encounter; I10 Essential (primary) hypertension; W19.XXXA Unspecified fall, initial encounter; Y93.9 Activity, unspecified; Y92.9 Unspecified place or not applicable; E11.9 Type 2 diabetes mellitus without complications; Z79.84 Long term (current) use of oral hypoglycemic drugs

== ENCOUNTER 2020-07-02 08:54 | Emergency (ER) | payer MEDICARE ==
[~2020-07-02] VITALS: Ht 152.4 cm; Wt 113.6 kg
[~2020-07-02 08:54] MED LIST changes: +IMODIUM2 MG PO
[2020-07-02 08:56] VITALS: Ht 152.4 cm; Wt 113.6 kg
[2020-07-02 11:00] LABS: BILIRUBIN NEGATIVE (NEGATIVE); KETONE NEGATIVE (NEGATIVE); NITRITE NEGATIVE (NEGATIVE); UROBILINOGEN NORMAL mg/dL (< 2)
[2020-07-02 11:06] LABS: UDS - AMPHET NEGATIVE QUAL (NEGATIVE); UDS - BARB NEGATIVE QUAL (NEGATIVE); UDS - BENZO NEGATIVE QUAL (NEGATIVE); UDS - COCAINE NEGATIVE QUAL (NEGATIVE); UDS - OPIATE NEGATIVE QUAL (NEGATIVE); UDS - PCP NEGATIVE QUAL (NEGATIVE); UDS - THC NEGATIVE QUAL (NEGATIVE)
[2020-07-02 11:26] LABS: HEMATOCRIT 40.5 % (36.0-48.0); HEMOGLOBIN 12.7 g/dL (12-16); LYMPHOCYTES 19.7 % (15-50); MCHC 31.4 g/dL (31.0-37.0); MEAN PLATELET VOLUME 8.5 fL (7.4-10.4); PLATELET COUNT 318 10x3/uL (130-400); RBC 4.88 10x6/uL (4.00-5.40); RDW 14.6 % (11.5-14.5); WBC 7.9 10x3/uL (4.8-10.8)
[2020-07-02 11:31] LABS: CALC OSMOLALITY 274 mosm/kg (275-300); CARBON DIOXIDE 29.3 mmol/L (21.0-32.0); CHLORIDE - SERUM 100 mmol/L (98-107); CREATININE - SERUM 0.7 mg/dL (0.6-1.3); GLUCOSE 134 mg/dL (74-106); POTASSIUM - SERUM 4.1 mmol/L (3.5-5.1); SODIUM 137 mmol/L (136-145); UREA NITROGEN 9 mg/dL (7-18); eGFR NON AFRICAN AMERICAN 87 mL/min (90-120)
[2020-07-02 11:36] LABS: APTT 28.3 SECONDS (22.8-39.4); INR 1.05 (0.85-1.17); PROTIME 13.6 SECONDS (11.6-15.0)
[2020-07-02 11:47] LABS: ALBUMIN 3.2 g/dL (3.4-5.0); ALKALINE PHOSPHATASE 119 U/L (30-120); ALT (SGPT) 21 U/L (10-68); BILIRUBIN - TOTAL 0.25 mg/dL (0.2-1.3); CKMB 0.9 U/L (0.0-3.6); CREATINE KINASE 33 UL (21-215); PROTEIN - SERUM 7.4 g/dL (6.4-8.2); TROPONIN-I < 0.017 ng/mL (0.000-0.060)
[2020-07-02 12:55] VITALS: BP 172/87
== END 2020-07-02 12:55 | disposition home or self-care (01) ==
LOC: D.ER 08:54
PROVIDERS: Emergency Medicine
DX: R51.9 Headache, unspecified (principal); F07.81 Postconcussional syndrome; R42 Dizziness and giddiness; E11.9 Type 2 diabetes mellitus without complications; I10 Essential (primary) hypertension